=== PATIENT | female | born 2005 | race Two or more races ===

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

== ENCOUNTER → 2024-04-18 | Outpatient (CLI) | payer BC ==
[2024-04-18 08:26] LABS: Basophils # (auto) 0.1 10 ^3/uL (0-0.2); Basophils % (auto) 1.4 % (0.0-2.0); Eosinophils # (auto) 0.4 10 ^3/uL (0-0.8); Eosinophils % (auto) 9.3 % (0.0-7.0); Hematocrit 36.8 % (36.0-46.0); Hemoglobin 11.9 g/dL (12.2-16.2); Lymphocytes % (auto) 44.4 % (10.0-50.0); Mean Corpuscular Hemoglobin 27.6 pg (28.0-32.0); Mean Corpuscular Hgb Conc. 32.3 g/dL (32.0-36.0); Mean Corpuscular Volume 85.6 fL (80.0-100.0); Monocytes # (auto) 0.4 10 ^3/uL (0-1.3); Monocytes % (auto) 8.2 % (0.0-12.0); Neutrophils # (auto) 1.6 10 ^3/uL (1.6-8.6); Neutrophils % (auto) 36.7 % (37.0-80.0); Nucleated Red Blood Cells % 0.1 %; Red Cell Distribution Width 15.5 % (11.8-14.3); White Blood Cell 4.5 10^3/uL (4.4-10.8)
[2024-04-18 08:51] LABS: Urine Bacteria FEW /hpf (None Seen); Urine Blood TRACE /uL (Negative); Urine Clarity Clear (Clear); Urine Color Light-Yellow (Yellow); Urine Mucus FEW (None Seen); Urine Protein, UAD Negative (Negative); Urine Specific Gravity 1.021 (1.001-1.035); Urine Urobilinogen Normal (Negative); Urine WBC 4 /hpf (0 - 5); Urine pH 6.5 (5.0-9.0)
[2024-04-18 09:03] LABS: Alanine Aminotransferase 11 U/L (7-40); Albumin 4.5 g/dL (3.2-4.8); Alkaline Phosphatase 68 U/L (46-116); Anion Gap 3 (5-15); Aspartate Aminotransferase 10 U/L (13-40); BUN/Creatinine Ratio 14.1 (10.0-20.0); Bilirubin, Total 0.4 mg/dL (0.2-1.0); Blood Urea Nitrogen 9 mg/dL (9-23); Calcium 9.8 mg/dL (8.5-10.1); Carbon Dioxide 29 mmol/L (20-30); Chloride 106 mmol/L (98-107); Cholesterol 137 mg/dL (< 200); Glucose 84 mg/dL (74-106); HDL Cholesterol 46 mg/dL (40-59); LDL Cholesterol 82 mg/dL (< 100); Magnesium 1.9 mg/dL (1.6-2.6); Sodium 138 mmol/L (136-145); Triglycerides 72 mg/dL (< 150)
[2024-04-18 09:04] LABS: Total Protein 7.2 g/dL (5.7-8.2)
[2024-04-18 09:23] LABS: Uric Acid 3.6 mg/dL (3.1-7.8)
[2024-04-18 10:47] LABS: Folate (Folic Acid) 15.57 ng/mL (>5.38)
== END | disposition home or self-care (01) ==
LOC: LAB 08:11
PROVIDERS: ATTEND Internal Medicine
DX: E79.0 Hyperuricemia without signs of inflammatory arthritis and tophaceous disease (principal); R68.89 Other general symptoms and signs; E78.49 Other hyperlipidemia; D51.9 Vitamin B12 deficiency anemia, unspecified; R73.09 Other abnormal glucose; R94.6 Abnormal results of thyroid function studies; E55.9 Vitamin D deficiency, unspecified; E61.2 Magnesium deficiency
CPT/HCPCS: 36415; 80053; 80061; 81001; 82306; 82607; 82746; 83036; 83735; 84443; 84550; 85025; 87086

== ENCOUNTER 2025-04-09 01:59 | Emergency (ER) | payer BC ==
[~2025-04-09] VITALS: Ht 160 cm; Wt 50.9 kg
--- NOTE | 2025-04-09 02:34 | ED.PDOC ---
GI ASSESSMENT HPI Comments PT PRESENTED TO ED FOR SHARP, CONSTANT, GENERALIZED ABDOMINAL PAIN AND NAUSEA X2 HOURS RADIATING TO LEFT FLANK AREA. PT DENIED DYURIA. PT STATED POSSIBLE IBS DIAGNOSIS. Time Seen by MD: 02:04 Reviewed Notes: Nurses Notes, Medications, Allergies Allergies: Coded Allergies: No Known Drug Allergy (Verified Allergy, Unknown, 04/09/25) Home Meds Active Scripts Ibuprofen Micronized (MOTRIN TABLET) 600 Mg Tb, 600 MG PO TID PRN for 3 Days, #9 TAB *Black box warning-NSAIDS can increase risk of HI & hypertension, GI irritation, ulceration, bleed, perferation. Do not use post cardiac surgery. Use short duration/lowest effective dose. Prov:MORAIMA SAUNDERS MD 04/09/25 Information Source: Patient Past Medical History PAST MEDICAL HISTORY: Denies Surgical History: Denies all surgeries HEALTH SPA MANAGER History: No Pertinent HEALTH SPA MANAGER History Family History Family History: Reviewed,noncontributory to illness Social History Smoker: Non-Smoker Alcohol: Denies ETOH Use Drugs: Denies Drug Use Constitutional: denies: chills, diaphoresis, fatigue, fever, malaise, sweats, weakness, others EENTM: denies: blurred vision, double vision, ear bleeding, ear discharge, ear drainage, ear pain, ear ringing, eye pain, eye redness, hearing loss, mouth pain, mouth swelling, nasal discharge, nose bleeding, nose congestion, nose pain, photophobia, tearing, throat pain, throat swelling, voice changes, others Respiratory: denies: cough, hemoptysis, orthopnea, SOB at rest, shortness of breath, SOB with excertion, stridor, wheezing, others Cardiovascular: denies: chest pain, dizzy spells, diaphoresis, Dyspnea on exertion, edema, irregular heart beat, left arm pain, lightheadedness, palpitations, PND, syncope, others Gastrointestinal: reports: nausea, vomiting; denies: abdomen distended, abdominal pain, blood streaked bowels, constipated, diarrhea, dysphagia, difficulty swallowing, hematemesis, melena, poor appetite, poor fluid intake, rectal bleeding, rectal pain, others Genitourinary: reports: flank pain; denies: abnormal vagina bleeding, burning, dyspareunia, dysuria, frequency, hematuria, incontinence, pain, , vagina discharge, urgency, others Neurological: denies: dizziness, fainting, headache, left sided numbness, left sided weakness, numbness, paresthesia, pre-existing deficit, right sided numbness, right sided weakness, seizure, speech problems, tingling, tremors, weakness, others Musculoskeletal: reports: back pain; denies: gout, joint pain, joint swelling, muscle pain, muscle stiffness, neck pain, others Integumetry: denies: bruises, change in color, change in hair/nails, dryness, laceration, lesions, lumps, rash, wounds, others Allergic/Immunocompromised: denies: Difficulty Healing, Frequent Infections, Hives, Itching, others Hematologic/Lymphatic: denies: anemia, blood clots, easy bleeding, easy bruising, swollen glands, others Endocrine: denies: excessive hunger, excessive sweating, excessive thirst, excessive urination, flushing, intolerance to cold, intolerance to heat, unexplained weight gain, unexplained weight loss, others Psychiatric: denies: anxiety, bipolar disorder, depression, hopeless, panic disorder, schizophrenia, sleepless, suicidal, others Physical Exam General Appearance: Moderate Distress, Normal HEENT: Pharynx Normal Neck: Full Range of Motion, Non-Tender Respiratory: Lungs Clear, No Respiratory Distress, Normal Breath Sounds Cardiovascular: No Edema, No JVD, No Murmur, No Gallop, Normal Peripheral Pulses, Regular Rate/Rhythm Breast Exam: Deferred Gastrointestinal: No Organomegaly, Non Tender, No Pulsatile Mass, Normal Bowel Sounds, Soft Genitalia: Deferred Pelvic: Deferred Rectal: Deferred Extremities: Normal capillary refill, Normal inspection, Normal range of motion, Non-tender, No pedal edema Musculoskeletal : Extremity Location: Back (TENDERNESS PALPATED OVER LEFT MID BACK AND LEFT FLANK) Apperance: Normal Neurologic: Alert, rooming house keeper II-XII nml as Tested, No Motor Deficits, Normal Affect, Normal Mood, No Sensory Deficits Cerebellar Function: Normal Reflexes: Normal Skin: Dry, Normal Color, Warm Peripheral Pulses: 3+ Radial (R), 3+ Radial (L) Lymphatic: No Adenopathy Was a procedure done? Was a procedure done?: No GI differential Dx Differential Diagnosis: Constipation, Diverticular disease, Esophagitis, Gastritis/PUD, Gastroenteritis X-Ray, Labs, Meds, VS Vital Signs Date Time Temp Pulse Resp B/P (MAP) Pulse Ox O2 Delivery O2 Flow Rate FiO2 04/09/25 06:00 67 18 96/48 (64) 96 04/09/25 04:26 74 15 97/55 04/09/25 04:00 98.3 76 15 100/60 (73) 100 98.3 04/09/25 03:56 65 16 96/65 04/09/25 03:04 95 22 95/65 (75) 100 04/09/25 03:01 100 Room Air* 0 21 04/09/25 02:51 98.4 78 16 100/62 (75) 98 98.4 Lab Test 04/09/25 02:44 Range/Units White Blood Count 6.4 4.4-10.8 10^3/uL Red Blood Count 4.04 4.0-5.20 10^6/uL Hemoglobin 12.1 L 12.2-16.2 g/dL Hematocrit 36.2 36.0-46.0 % Mean Corpuscular Volume 89.6 80.0-100.0 fL Mean Corpuscular Hemoglobin 29.9 28.0-32.0 pg Mean Corpuscular Hemoglobin Concent 33.3 32.0-36.0 g/dL Red Cell Distribution Width 14.1 11.8-14.3 % Platelet Count 298 140-450 10^3/uL Mean Platelet Volume 8.6 6.9-10.8 fL Neutrophils (%) (Auto) 39.2 37.0-80.0 % Lymphocytes (%) (Auto) 47.3 10.0-50.0 % Monocytes (%) (Auto) 7.9 0.0-12.0 % Eosinophils (%) (Auto) 4.6 0.0-7.0 % Basophils (%) (Auto) 1.0 0.0-2.0 % Neutrophils # (Auto) 2.5 1.6-8.6 10 ^3/uL Lymphocytes # (Auto) 3.0 0.4-5.4 10 ^3/uL Monocytes # (Auto) 0.5 0-1.3 10 ^3/uL Eosinophils # (Auto) 0.3 0-0.8 10 ^3/uL Basophils # (Auto) 0.1 0-0.2 10 ^3/uL Nucleated Red Blood Cells 0.0 % Sodium Level 141 136-145 mmol/L Potassium Level 3.4 L 3.5-5.1 mmol/L Chloride Level 105 98-107 mmol/L Carbon Dioxide Level 23 20-31 mmol/L Anion Gap 13 5-15 Blood Urea Nitrogen 14 9-23 mg/dL Creatinine 0.90 0.550-1.02 mg/dL Glomerular Filtration Rate Calc 94 >90 mL/min BUN/Creatinine Ratio 15.6 10.0-20.0 Serum Glucose 114 H 74-106 mg/dL Calcium Level 9.2 8.7-10.4 mg/dL Total Bilirubin 0.3 0.2-1.0 mg/dL Aspartate Amino Transferase (AST) 17 13-40 U/L Alanine Aminotransferase (ALT) 15 7-40 U/L Alkaline Phosphatase 54 46-116 U/L Total Protein 6.8 5.7-8.2 g/dL Albumin 4.4 3.2-4.8 g/dL Beta HCG, Quantitative 0.5 L 1.5-4.2 mIU/mL Current Medications Medications (Trade) Dose Ordered Sig/Isamar Route Start Time Stop Time Status Last Admin Ketorolac Tromethamine (Toradol Injection) 30 mg ONCE ONCE IV 04/09/25 02:45 04/09/25 02:46 DC 04/09/25 02:56 Sodium Chloride 1,000 ml @ 1,000 mls/hr Q1H ONCE IV 04/09/25 02:45 04/09/25 03:44 DC 04/09/25 02:57 Ondansetron HCl (Zofran) 4 mg ONCE ONCE IV 04/09/25 03:00 04/09/25 03:01 DC 04/09/25 03:08 Metoclopramide HCl (Reglan Injection) 5 mg ONCE ONCE IV 04/09/25 03:45 04/09/25 03:46 DC 04/09/25 03:54 Morphine Sulfate 0.5 mg ONCE ONCE IM 04/09/25 03:45 04/09/25 03:46 DC 04/09/25 03:56 Sodium Chloride 1,000 ml @ 100 mls/hr Q10H ONCE IV 04/09/25 03:45 04/09/25 13:44 04/09/25 03:56 Patient alert. Came in for flank pain. Vitals stable. Answering questions. Continues to have pain. Was given Toradol. Establish intravenous access. Was given fluids pain Was given morphine. Was given Reglan. CT scan of the abdomen does show kidney stone. Continue monitoring. She is pain-free. Explained to the patient that she can be discharged home with pain medication. Satisfied with the treatment plan. Was told to follow up with her primary care physician. Was told to come back if there is any problem. Time of 1ST Reevaluation: 02:32 Reevaluation 1ST: Unchanged Time of 2ND Reevaluation: 03:14 Reevaluation 2ND: Improved Patient Education/Counseling: Diagnosis, Treatment, Prognosis, Need For Follow Up Family Education/Counseling: Diagnosis, Treatment, Prognosis, Need For Follow Up Departure 1 Departure Time of Disposition: 07:02 Impression: Primary Impression: Kidney stone Disposition: 01 HOME / SELF CARE / HOMELESS Condition: Good e-Prescriptions Cephalexin (KEFLEX CAPSULE) 250 Mg Cp 250 MG PO QID for 5 Days, #20 BOTTLE Prov: MORAIMA SAUNDERS MD 04/09/25 Ibuprofen Micronized (MOTRIN TABLET) 600 Mg Tb 600 MG PO TID PRN for 3 Days, #9 TAB *Black box warning-NSAIDS can increase risk of HI & hypertension, GI irritation, ulceration, bleed, perferation. Do not use post cardiac surgery. Use short duration/lowest effective dose. Prov: MORAIMA SAUNDERS MD 04/09/25 Discharged With: Self Critical Care Note Critical Care Time?: No Stability Stability form required: No Heart Score Heart Score: Heart Score Response (Comments) Value History N/A 0 EKG N/A 0 Age N/A 0 Risk Factors N/A 0 Troponin N/A 0 Total 0 EMILY IRWIN April 09, 2025 02:34 MORAIMA SAUNDERS MD April 09, 2025 07:03
[2025-04-09] MEDS: KETOROLAC TROMETH 30 MG/ML 1ML VIAL IV ONE (02:56)
[2025-04-09] MEDS: SODIUM CHLORIDE 0.9% 1,000 ML IV ONE ×3 (02:57→07:23)
[2025-04-09 02:58] LABS: Basophils # (auto) 0.1 10 ^3/uL (0-0.2); Eosinophils # (auto) 0.3 10 ^3/uL (0-0.8); Eosinophils % (auto) 4.6 % (0.0-7.0); Hematocrit 36.2 % (36.0-46.0); Hemoglobin 12.1 g/dL (12.2-16.2); Lymphocytes % (auto) 47.3 % (10.0-50.0); Mean Corpuscular Hemoglobin 29.9 pg (28.0-32.0); Mean Corpuscular Hgb Conc. 33.3 g/dL (32.0-36.0); Mean Corpuscular Volume 89.6 fL (80.0-100.0); Monocytes # (auto) 0.5 10 ^3/uL (0-1.3); Monocytes % (auto) 7.9 % (0.0-12.0); Neutrophils # (auto) 2.5 10 ^3/uL (1.6-8.6); Neutrophils % (auto) 39.2 % (37.0-80.0); Platelet Count (auto) 298 10^3/uL (140-450); Red Blood Cells 4.04 10^6/uL (4.0-5.20); Red Cell Distribution Width 14.1 % (11.8-14.3); White Blood Cell 6.4 10^3/uL (4.4-10.8)
[2025-04-09 03:01] VITALS: O2SAT 100
[2025-04-09] MEDS: ONDANSETRON HCL 4 MG/2 ML VIAL IV ONE (03:08)
[2025-04-09] MEDS: ONDANSETRON HCL 4 MG/2 ML VIAL ONE (03:08)
[2025-04-09 03:42] LABS: Alanine Aminotransferase 15 U/L (7-40); Albumin 4.4 g/dL (3.2-4.8); Alkaline Phosphatase 54 U/L (46-116); Aspartate Aminotransferase 17 U/L (13-40); BUN/Creatinine Ratio 15.6 (10.0-20.0); Bilirubin, Total 0.3 mg/dL (0.2-1.0); Blood Urea Nitrogen 14 mg/dL (9-23); Calcium 9.2 mg/dL (8.7-10.4); Carbon Dioxide 23 mmol/L (20-31); Total Protein 6.8 g/dL (5.7-8.2)
[2025-04-09] MEDS: METOCLOPRAMIDE HCL 5MG/ml INJ 2ml VIAL IV ONE (03:54)
[2025-04-09] MEDS: MORPHINE SULFATE INJ 2 MG/ml SYRG IM ONE (03:56)
[2025-04-09 04:13] LABS: Glucose 114 mg/dL (74-106)
[2025-04-09 04:21] LABS: Anion Gap 13 (5-15); Chloride 105 mmol/L (98-107); Sodium 141 mmol/L (136-145)
[2025-04-09 04:22] LABS: Potassium 3.4 mmol/L (3.5-5.1)
--- NOTE | 2025-04-09 06:49 | DVH ---
Exam: CT CT AB PEL WO CON-NO ORAL OR IV History: left flank pain Comparison Study: None Technique: Multidetector spiral CT of the abdomen was performed from lung bases to pubic symphysis. I maging was performed without IV contrast. Axial, coronal and sagittal multiplanar reformats were obta ined from the axial data set by the technologist. Radiation Dose : 1. Abdomen/Pelvis: CTDIvol 5.4 mGy, DLP 309 mGy*cm. Findings: Evaluation of solid organs is limited due to lack of intravenous contrast use. Lung Bases: No acute or significant lung base finding. Normal heart size. No pleural or pericardial effusion. Liver: The liver is normal in size. No focal lesions. Gallbladder and Biliary Tree: Unremarkable Spleen: Unremarkable Pancreas: The pancreas is grossly normal in appearance. Adrenal Glands: Unremarkable Kidneys: Right kidney is unremarkable. Punctate 0.1 cm nonobstructing stone in the left upper pole. Mild left hydroureteronephrosis. No appreciable obstructing stone or mass. Bladder: Grossly unremarkable for degree of distention. Bowel: The stomach is grossly normal in appearance. Moderate colonic stool. The appendix is not visua lized; however, no secondary findings of acute appendicitis identified. Ascites: Absent Lymphadenopathy: No mesenteric, retroperitoneal or periportal lymphadenopathy. Abdominal Wall and Mesentery: Unremarkable. Vasculature: The visualized abdominal aorta is normal in size and caliber. Evaluation of abdominal a nd pelvic vessels is limited due to lack of intravenous contrast. Pelvic Organs: Unremarkable Musculoskeletal: No aggressive focal bony lesions, acute fractures or dislocation. IMPRESSION: Punctate 0.1 cm nonobstructing stone in the left upper pole kidney. Mild left hydroureteronephrosis without appreciable obstructing stone or mass. Findings may represent changes related to recently passed renal stone. Clinical correlation advised. Moderate volume colonic stool.
[2025-04-09] MEDS ORDERED: IBU600T PO (07:04)
[2025-04-09] MEDS ORDERED: CEPH250C PO (07:19)
[2025-04-09] MEDS: POTASSIUM EFFERVESENT TAB 25 MEQ PO ONE (07:23)
[2025-04-09 07:30] VITALS: BP 96/56; PULSE 69; RESP 22; TEMP 97.9; O2SAT 97
[2025-04-09 08:36] LABS: Urine Bacteria FEW /hpf (None Seen); Urine Blood 2+ /uL (Negative); Urine Clarity Turbid (Clear); Urine Color Colorless (Yellow); Urine Mucus FEW (None Seen); Urine Protein, UAD Negative (Negative); Urine Specific Gravity 1.023 (1.001-1.035); Urine Squamous Epithelial Cell FEW /hpf (<5); Urine Urobilinogen Normal (Negative); Urine WBC 2 /HPF (0-5)
[2025-04-10] MEDS ORDERED: DOCU-265 PO ×2 (15:48)
[2025-04-10] MEDS ORDERED: CIPR500T4 PO ×2 (15:48)
[2025-04-10] MEDS ORDERED: ACET-1882 PO ×2 (15:48)
== END 2025-04-09 08:24 | disposition home or self-care (01) ==
LOC: ER 01:59
DX: N20.0 Calculus of kidney (principal); Z79.899 Other long term (current) drug therapy
CPT/HCPCS: 36415; 74176; 80053; 81001; 81025; 84702; 85025; 96361; 96372; 96374; 96375; 99285; J1885; J2270; J2405; J2765; J7030

== ENCOUNTER 2025-04-09 12:50 | Inpatient (IN) | payer BC ==
[~2025-04-09] VITALS: Ht 160 cm; Wt 56.1 kg
[~2025-04-09 12:50] MED LIST: CEPH250C PO; IBU600T PO
--- NOTE | 2025-04-09 13:22 | ED.PDOC ---
General HPI Comments 19 y.o female presents to the ED for a chief complaint of mid abdominal pain radiating to her left sided flank, associated with nausea, vomiting and chills that started 0100. Patient describes pain as sharp, presents at an 8/10 on the pain scale but does increase to a 10/10 for about 5-10 minutes spontaneously. Patient was seen here at 0200 this morning, had a CT scan which confirmed kidney stones and discharged her home with a prescription of 600mg of Ibuprofen. Patient took pain medication but reports pain is persistent and non alleviating. She denies any fever, diarrhea, recent injuries, dysuria or hematuria. Patient has no medical history or allergies. Denies substance, alcohol or tobacco use. Time Seen by MD: 13:13 Reviewed notes: Nurses Notes, Medications, Allergies Allergies: Coded Allergies: No Known Drug Allergy (Verified Allergy, Unknown, 04/09/25) Home Meds Active Scripts Cephalexin (KEFLEX CAPSULE) 250 Mg Cp, 250 MG PO QID for 5 Days, #20 BOTTLE Prov:MORAIMA SAUNDERS MD 04/09/25 Ibuprofen Micronized (MOTRIN TABLET) 600 Mg Tb, 600 MG PO TID PRN for 3 Days, #9 TAB *Black box warning-NSAIDS can increase risk of [place] & hypertension, GI irritation, ulceration, bleed, perferation. Do not use post cardiac surgery. Use short duration/lowest effective dose. Prov:MORAIMA SAUNDERS MD 04/09/25 Information Source: Patient Mode of Arrival: Ambulatory Severity: Moderate Timing: Hours Duration: Since onset Onset: Spontaneous Symptoms: None History of: Kidney stone Location: Abdomen, (L)Flank Modifying factors: None associated signs and symptoms: Abdominal Pain, Flank Pain, Back Pain Past Medical History PAST MEDICAL HISTORY: Denies Surgical History: Denies all surgeries MANAGEMENT RECRUITER History: No Pertinent MANAGEMENT RECRUITER History Family History Family History: Family hx of HTN Social History Smoker: Non-Smoker Alcohol: Denies ETOH Use Drugs: Denies Drug Use Lives In: Home Constitutional: denies: chills, diaphoresis, fatigue, fever, malaise, sweats, weakness, others EENTM: denies: blurred vision, double vision, ear bleeding, ear discharge, ear drainage, ear pain, ear ringing, eye pain, eye redness, hearing loss, mouth pain, mouth swelling, nasal discharge, nose bleeding, nose congestion, nose pain, photophobia, tearing, throat pain, throat swelling, voice changes, others Respiratory: denies: cough, hemoptysis, orthopnea, SOB at rest, shortness of breath, SOB with excertion, stridor, wheezing, others Cardiovascular: denies: chest pain, dizzy spells, diaphoresis, Dyspnea on ex ertion, edema, irregular heart beat, left arm pain, lightheadedness, palpitations, PND, syncope, others Gastrointestinal: reports: abdominal pain; denies: abdomen distended, blood streaked bowels, constipated, diarrhea, dysphagia, difficulty swallowing, hematemesis, melena, nausea, poor appetite, poor fluid intake, rectal bleeding, rectal pain, vomiting, others Genitourinary: reports: flank pain; denies: abnormal vagina bleeding, burning, dyspareunia, dysuria, frequency, hematuria, incontinence, pain, , vagina discharge, urgency, others Neurological: denies: dizziness, fainting, headache, left sided numbness, left sided weakness, numbness, paresthesia, pre-existing deficit, right sided numbness, right sided weakness, seizure, speech problems, tingling, tremors, weakness, others Musculoskeletal: reports: back pain; denies: gout, joint pain, joint swelling, muscle pain, muscle stiffness, neck pain, others Integumetry: denies: bruises, change in color, change in hair/nails, dryness, laceration, lesions, lumps, rash, wounds, others Allergic/Immunocompromised: denies: Difficulty Healing, Frequent Infections, Hives, Itching, others Hematologic/Lymphatic: denies: anemia, blood clots, easy bleeding, easy bruising, swollen glands, others Endocrine: denies: excessive hunger, excessive sweating, excessive thirst, excessive urination, flushing, intolerance to cold, intolerance to heat, unexplained weight gain, unexplained weight loss, others Psychiatric: denies: anxiety, bipolar disorder, depression, hopeless, panic disorder, schizophrenia, sleepless, suicidal, others All Other Systems: Reviewed and Negative Physical Exam General Appearance: Moderate Distress HEENT: Normal ENT Inspection, Pharynx Normal, TMs Normal Neck: Full Range of Motion, Non-Tender, Normal, Normal Inspection Respiratory: Chest Non-Tender, Lungs Clear, No Accessory Muscle Use, No Respiratory Distress, Normal Breath Sounds Cardiovascular: No Edema, No JVD, No Murmur, No Gallop, Normal Peripheral Pulses, Regular Rate/Rhythm Breast Exam: Deferred Gastrointestinal: No Organomegaly, Non Tender, No Pulsatile Mass, Normal Bowel Sounds, Soft Genitalia: Deferred Pelvic: Deferred Rectal: Deferred Extremities: No calf tenderness, Normal capillary refill, Normal inspection, Normal range of motion, Non-tender, No pedal edema Musculoskeletal : Location: Left Extremity Location: Back Apperance: Limited ROM, Tenderness: Moderate Neurologic: Alert, county demonstrator II-XII nml as Tested, No Motor Deficits, Normal Affect, Normal Mood, No Sensory Deficits Cerebellar Function: Normal Reflexes: Normal Skin: Dry, Normal Color, Warm Lymphatic: No Adenopathy Was a procedure done? Was a procedure done?: No Differential Diagnosis Kidney stone (Female): Musculoskeletal pain, Pancreatitis, Pyelonephritis, Strain, Urinary obstruction X-Ray, Labs, Meds, VS Vital Signs Date Time Temp Pulse Resp B/P (MAP) Pulse Ox O2 Delivery O2 Flow Rate FiO2 04/09/25 15:35 61 17 100 Room Air 04/09/25 15:35 98.7 63 17 108/70 (83) 100 98.7 04/09/25 13:23 98.3 78 17 96/60 (72) 98 98.3 04/09/25 12:50 98.3 78 17 96/60 (72) 98 98.3 Current Medications Medications (Trade) Dose Ordered Sig/Isamar Route Start Time Stop Time Status Last Admin Ondansetron HCl (Zofran) 4 mg ONCE ONCE IV 04/09/25 13:30 04/09/25 13:31 DC 04/09/25 15:43 Sodium Chloride 1,000 ml @ 1,000 mls/hr Q1H ONCE IVB 04/09/25 13:30 04/09/25 14:29 DC 04/09/25 15:31 Ketorolac Tromethamine (Toradol Injection) 30 mg ONCE ONCE IV 04/09/25 13:30 04/09/25 13:31 DC 04/09/25 15:43 Exam: CT CT AB PEL WO CON-NO ORAL OR IV IMPRESSION: Punctate 0.1 cm nonobstructing stone in the left upper pole kidney. Mild left hydroureteronephrosis without appreciable obstructing stone or mass. Findings may represent changes related to recently passed renal stone. Clinical correlation advised. Moderate volume colonic stool. IV Hep-Lock was established The patient was given ketorolac 30 mg IV push The patient was given a 1 L bolus of normal saline The patient was given Zofran 4 mg IV push for the nausea At this time, the patient is being admitted to the hospitalist The patient understands and agrees with the management. Images Reviewed?: Images reviewed and evaluated by me Time of 1ST Reevaluation: 13:18 Reevaluation 1ST: Unchanged Patient Education/Counseling: Diagnosis, Treatment, Prognosis Family Education/Counseling: Diagnosis, Treatment, Prognosis Departure 1 Departure Time of Disposition: 17:25 Impression: Primary Impression: Hydronephrosis Qualified Codes: N13.2 - Hydronephrosis with renal and ureteral calculous obstruction Additional Impression: Kidney stone Disposition: ADMITTED INPATIENT Admit to: Med Surg Condition: Fair Critical Care Note Critical Care Time?: No Stability Stability form required: Yes Unstable for transfer: ED Physician Assesment (Clinical assesment) Heart Score Heart Score: Heart Score Response (Comments) Value History N/A 0 EKG N/A 0 Age N/A 0 Risk Factors N/A 0 Troponin N/A 0 Total 0 I personally scribed for WHITNEY WEBER MD ([email or web address]) on 04/09/25 at 13:22. Electronically submitted by Aliyah Walters ([facility]). WHITNEY WEBER MD April 09, 2025 13:22
[2025-04-09] MEDS: SODIUM CHLORIDE 0.9% 1,000 ML IVB ONE (15:31)
[2025-04-09] MEDS: ONDANSETRON HCL 4 MG/2 ML VIAL IV ONE (15:43)
[2025-04-09] MEDS: KETOROLAC TROMETH 30 MG/ML 1ML VIAL IV ONE (15:43)
[2025-04-09] MEDS ORDERED: ACETAMINOPHEN 325 MG TAB PO PRN (23:00)
[2025-04-09] MEDS ORDERED: DOCUSATE SOD 100 MG CAP PO PRN (23:00)
[2025-04-09] MEDS ORDERED: ONDANSETRON HCL 4 MG/2 ML VIAL IV PRN (23:00)
[2025-04-09] MEDS ORDERED: HYDROcodone-ACET 5/325MG TAB PO PRN (23:00)
--- NOTE | 2025-04-09 23:05 | DVHHP2 ---
History of Present Illness History of Present Illness Patient is 19 years old female with no significant past medical history came with a complaint of abdominal pain. As per patient she has been having abdominal pain that started on 1:00 a.m. in the morning, sudden onset, sharp, radiating to the back to the left flank, initially it was intermittent then it became persistent, maximum pain severity was 8/10. As per patient she came around 2:00 a.m. in the morning with the pain in the abdomen before she had a CT scan she had uterine strain and soy stone passing. After CT scan she was discharged home with the pain medication. But as the pain was ongoing she came back for further evaluation and care. Patient also endorsed nausea and vomiting several times, watery, no blood. Patient also reported having constipation for a while. No fever or dysuria or chest pain no shortness a breath or leg swelling or joint redness or tenderness. CT scan of the abdomen -Punctate 0.1 cm nonobstructing stone in the left upper pole kidney. Mild left hydroureteronephrosis without appreciable obstructing stone or mass. Findings may represent changes related to recently passed renal stone. Clinical correlation advised.Moderate volume colonic stool. Past Medical History None Family History Family history of hypertension Past Social History Lives with mom, denies smoking/drug abuse, occasional alcoholic beverage seldom Review of Systems Review of Systems Allergy-NKDA Patient was seen today at the bedside. Patient Cardiovascular- deny acute chest pain or shortness of breath or cough or palpitation Respiratory denies cough or short of breath or wheezing Gastrointestinal- denies any rectal bleeding, Musculoskeletal-denies acute joint swelling or tenderness or redness Neurological- denies acute dysarthria, dysphagia, change in vision Psychiatry- denies depression or SI or HI Skin- denies acute rash or purpura Allergies: Coded Allergies: No Known Drug Allergy (Verified Allergy, Unknown, 04/09/25) Medications Current Medications Medications Dose Ordered Sig/Isamar Route Start Time Stop Time Status Last Admin Dose Admin Sodium Chloride 10 ml Q8HR IV 04/10/25 06:00 Sodium Chloride 1,000 ml @ 120 mls/hr Q8H20M IV 04/09/25 23:00 Ondansetron HCl 4 mg Q4HP PRN IV 04/09/25 23:00 Docusate Sodium 100 mg BIDPRN PRN PO 04/09/25 23:00 Acetaminophen 650 mg Q6HP PRN PO 04/09/25 23:00 Ketorolac Tromethamine 15 mg Q6HPRN PRN IV 04/09/25 23:00 04/14/25 22:59 Pantoprazole Sodium 40 mg DAILY IV 04/10/25 10:00 UNV Ceftriaxone Sodium 50 ml @ 100 mls/hr DAILY@09 IV 04/10/25 09:00 UNV Exam Vital Signs Vital Signs Date Time Temp Pulse Resp B/P (MAP) Pulse Ox O2 Delivery O2 Flow Rate FiO2 04/09/25 22:03 98.7 68 14 97/67 (77) 100 98.7 04/09/25 15:35 Room Air Exam General examination- awake, alert, conversant HEENT- PEERLA, no acute nasal discharge Cardiovascular- S1-S2 audible, rate and rhythm regular, no murmur Respiratory- CTAB, no wheeze or rhonchi Gastrointestinal-nontender, bowel sound+. Nondistended Renal system-left renal angle tenderness++ Musculoskeletal-no acute joint swelling or tenderness or redness Lower extremity- no leg edema Neurological- cranial nerves intact, no acute dysarthria or dysphagia Psychiatry- denies depression or SI or HI Skin- no acute rash or purpura Assessment/Plan Assessment/Plan Assessment and plan Intractable abdomen and left flank pain likely due to acute renal stone Mild left-sided hydronephrosis likely due to acute renal stone with the obstruction Suspected acute pyelonephritis Intractable nausea and vomiting likely due to pyelonephritis Constipation CT scan of the abdomen -Punctate 0.1 cm nonobstructing stone in the left upper pole kidney. Mild left hydroureteronephrosis without appreciable obstructing stone or mass. Findings may represent changes related to recently passed renal stone. Clinical correlation advised.Moderate volume colonic stool. Plan Ordered mannitol iv Continue IV fluid as prescribed Continue pain medication as prescribed Ordered ceftriaxone IV 1 g IV daily Ordered UA, urine CS Ordered lactulose Ordered lipase, CBC, CMP Ordered ultrasound of the renal system to rule out hydronephrosis Goals of care, Code status ; discussed with >15 minutes PUD prophylaxis: Pantoprazole DVT prophylaxis: Patient ambulating Plan discussed with Dr. Celeste , nursing staff, Total time spent on patient evaluation, chart review, assessment and plan, discussion discussion >35 minutes Plan discussed with: Patient, Other (Mother, RN) My Orders Orders - AKBAR DENNIS RESIDENT Procedure Category Date Status Time Admit ADMIT 04/09/25 Transmitted 22:51 Code Status CODE 04/09/25 Transmitted 22:51 Sodium Chloride Lock PHA 04/10/25 In Process (Saline Lock Ns) 06:00 Sodium Chloride 0.9% PHA 04/09/25 In Process 23:00 Ondansetron Hcl PHA 04/09/25 In Process (Zofran) 23:00 Docusate Sodium PHA 04/09/25 In Process Capsule (Colace 23:00 Acetaminophen Tablet PHA 04/09/25 In Process (Tylenol Tablet) 23:00 Notify Md Of Changes REMY 04/09/25 In Process From Base 22:51 Ketorolac Injection PHA 04/09/25 Logged (Toradol Injection) 23:00 Pantoprazole PHA 04/09/25 Logged (Protonix) 23:00 Pantoprazole PHA 04/10/25 Logged (Protonix) 10:00 Ceftriaxone 1gm/50ml PHA 04/10/25 Logged D5w (Rocephin) 09:00 Ceftriaxone 1gm/50ml PHA 04/09/25 Logged D5w (Rocephin) 23:00 Urine Bacterial FILIBERTO 04/09/25 Logged Culture 22:54 Strain All Urine For REMY 04/09/25 In Process Stones 22:55 Complete Blood Count LAB 04/09/25 Transmitted 22:56 Comprehensive LAB 04/09/25 Transmitted Metabolic Panel 22:56 Thyroid Stimulating LAB 04/09/25 Transmitted Hormone 22:56 Date of Service: April 09, 2025 Billing Provider: NOAH CELESTE MD Common Visit Codes: 02804-[id number] INP/OBS CARE (HIGH) Secondary Visit Codes: [id number] CARE PLAN 30 MINUTES AKBAR DENNIS RESIDENT April 09, 2025 23:05
[2025-04-09 23:19] LABS: Basophils # (auto) 0.1 10 ^3/uL (0-0.2); Basophils % (auto) 0.9 % (0.0-2.0); Eosinophils # (auto) 0 10 ^3/uL (0-0.8); Eosinophils % (auto) 0.7 % (0.0-7.0); Hemoglobin 11.2 g/dL (12.2-16.2); Lymphocytes # (auto) 1.9 10 ^3/uL (0.4-5.4); Lymphocytes % (auto) 29.2 % (10.0-50.0); Mean Corpuscular Hemoglobin 29.9 pg (28.0-32.0); Mean Corpuscular Volume 90.4 fL (80.0-100.0); Monocytes # (auto) 0.5 10 ^3/uL (0-1.3); Monocytes % (auto) 7.3 % (0.0-12.0); Neutrophils % (auto) 61.9 % (37.0-80.0); Platelet Count (auto) 247 10^3/uL (140-450); Red Blood Cells 3.76 10^6/uL (4.0-5.20); Red Cell Distribution Width 14.5 % (11.8-14.3); White Blood Cell 6.5 10^3/uL (4.4-10.8)
[2025-04-09 23:38] LABS: Alanine Aminotransferase 15 U/L (7-40); Albumin 4.2 g/dL (3.2-4.8); Anion Gap 10 (5-15); Aspartate Aminotransferase 15 U/L (13-40); BUN/Creatinine Ratio 14.8 (10.0-20.0); Bilirubin, Total 0.5 mg/dL (0.2-1.0); Calcium 8.9 mg/dL (8.7-10.4); Carbon Dioxide 22 mmol/L (20-31); Glucose 79 mg/dL (74-106); Potassium 3.7 mmol/L (3.5-5.1); Sodium 142 mmol/L (136-145); Total Protein 6.4 g/dL (5.7-8.2)
[2025-04-09 23:46] LABS: Alkaline Phosphatase 44 U/L (46-116); Blood Urea Nitrogen 8 mg/dL (9-23); Chloride 110 mmol/L (98-107)
[2025-04-10] VITALS (8 sets, daily range): BP systolic 94–112; BP diastolic 48–68; PULSE 57–93; RESP 17–18; TEMP 98–98.7; O2SAT 65–99
--- NOTE | 2025-04-10 00:49 | DVH ---
RENAL ULTRASOUND CLINICAL HISTORY: Flank pain, rule out hydronephrosis TECHNIQUE: Multiple grayscale ultrasound images were obtained through the kidneys and urinary bladder . COMPARISON: CT abdomen and pelvis from 04/09/2025 FINDINGS: Right kidney: Measures 10 cm. No hydronephrosis. Left kidney: Measures 9.5 cm. No hydronephrosis. Urinary bladder: Partially distended urinary bladder. Left ureteral jet not visualized. IMPRESSION: 1. Normal size kidneys without evidence of hydronephrosis. 2. Left ureteral jet not visualized.
[2025-04-10] MEDS: KETOROLAC TROMETH 30 MG/ML 1ML VIAL IV PRN (01:38)
[2025-04-10] MEDS: cefTRIAXone 1GM/50ML D5W 50 ML IV ONE (01:39)
[2025-04-10] MEDS: PANTOPRAZOLE 40 MG/10 ML VIAL INJ IV ONE (01:39)
[2025-04-10] MEDS: LACTULOSE 20Gm/30ML SOLN PO ONE (01:39)
[2025-04-10] MEDS: SODIUM CHLORIDE 0.9% 1,000 ML IV SCH (01:40)
[2025-04-10] MEDS: SODIUM CHLORIDE 0.9% 500 ML IV ONE (02:51)
[2025-04-10] MEDS: SODIUM CHLOR 0.9% PF (SALINE LOCK) 10ML VIAL/SYR IV SCH (05:39)
[2025-04-10] MEDS: MANNITOL 20% SOLN 100 gm/500ml 100 ML IV ONE (08:46)
[2025-04-10] MEDS: LACTULOSE 20Gm/30ML SOLN PO PRN (09:00)
[2025-04-10] MEDS: cefTRIAXone 1GM/50ML D5W 50 ML IV SCH (09:01)
[2025-04-10] MEDS: PANTOPRAZOLE 40 MG/10 ML VIAL INJ IV SCH (10:21)
[2025-04-10 10:40] LABS: Basophils # (auto) 0 10 ^3/uL (0-0.2); Basophils % (auto) 1.2 % (0.0-2.0); Eosinophils # (auto) 0.2 10 ^3/uL (0-0.8); Hemoglobin 10.2 g/dL (12.2-16.2); Lymphocytes # (auto) 1.7 10 ^3/uL (0.4-5.4); Lymphocytes % (auto) 42.6 % (10.0-50.0); Mean Corpuscular Hemoglobin 30.1 pg (28.0-32.0); Mean Corpuscular Hgb Conc. 32.9 g/dL (32.0-36.0); Mean Corpuscular Volume 91.5 fL (80.0-100.0); Monocytes # (auto) 0.3 10 ^3/uL (0-1.3); Monocytes % (auto) 8.2 % (0.0-12.0); Neutrophils # (auto) 1.7 10 ^3/uL (1.6-8.6); Platelet Count (auto) 200 10^3/uL (140-450); Red Blood Cells 3.39 10^6/uL (4.0-5.20); Red Cell Distribution Width 14.3 % (11.8-14.3)
--- NOTE | 2025-04-10 11:55 | DVHPNRES ---
Progress Note Date Seen: April 10, 2025 Resident Creating Document: ASIA VARGAS RESIDENT Has the PT tested + for MRSA If YES, has PT been informed?: No Medical Necessity Reason Pt with a Central, PICC or Fol: No Medical Necessity Reason History of Present Illness Patient is 19 years old female with no significant past medical history came with a complaint of abdominal pain. As per patient she has been having abdominal pain that started on 1:00 a.m. in the morning, sudden onset, sharp, radiating to the back to the left flank, initially it was intermittent then it became persistent, maximum pain severity was 8/10. As per patient she came around 2:00 a.m. in the morning with the pain in the abdomen before she had a CT scan she had uterine strain and soy stone passing. After CT scan she was discharged home with the pain medication. But as the pain was ongoing she came back for further evaluation and care. Patient also endorsed nausea and vomiting several times, watery, no blood. Patient also reported having constipation for a while. No fever or dysuria or chest pain no shortness a breath or leg swelling or joint redness or tenderness. CT scan of the abdomen -Punctate 0.1 cm nonobstructing stone in the left upper pole kidney. Mild left hydroureteronephrosis without appreciable obstructing stone or mass. Findings may represent changes related to recently passed renal stone. Clinical correlation advised.Moderate volume colonic stool. Past Medical History; None Past surgical history: None Family History: hypertension Past Social History: Lives with mom, denies smoking/drug abuse, occasional alcoholic beverage seldom 04/10 Patient is a 19-year-old female with no known past medical history was seen yesterday Thursday (04/09/2025) with left flank pain with radiation to the groin and lower abdomen. Per patient, while she was waiting to be seen she actually did pass a stone. CT abdomen ( 04/09/2025) showed Punctate 0.1 cm nonobstructing stone in the left upper pole kidney. Mild left hydroureteronephrosis without appreciable obstructing stone or mass. Findings may represent changes related to recently passed renal stone. Clinical correlation advised.Moderate volume colonic stool. Patient was later discharge yesterday, but she returned on 04/10/2025 around 2: 00 am due to persistent left flank pain. Lab works done on 04/09/2025 showed evidence possible UTI. will get urine for culture and start her on antibiotics. Subjective Review of Systems Constitutional: Denies fever no chills no feeling of malaise HEENT: Denies headache, ear pain, ear discharges, conjunctivitis, nasal discharge throat pain Cardiovascular: Denies chest pain, palpitation, orthopnea, PND, or pedal edema Respiratory: Denies shortness of breath, cough cough, sputum production, hemoptysis, GI: Denies abdominal pain, nausea, vomiting, diarrhea, hematemesis, hematochezia, : Denies frequency, urgency, hematuria, left flank pain, lower abodominal pain Endocrine: Denies unintentional weight gain or weight loss, feeling of hot flashes, Souleymane: Denies easy bruising, bleeding disorders, epistaxis Musculoskeletal: Denies joint pains, muscle aches Psych: No evidence of depression, debi, suicidal ideation Objective vital signs Vital Sign Date Time Temp Pulse Resp B/P (MAP) Pulse Ox O2 Delivery O2 Flow Rate FiO2 04/10/25 08:55 98.7 93 18 100/55 (70) 98 98.7 04/10/25 08:00 Room Air* 0 21 Total Intake and Output 04/09/25 04/09/25 04/10/25 15:00 23:00 07:00 Intake Total 1000 ml 0 ml Balance 1000 ml 0 ml medications Current Medications Medications Dose Ordered Sig/Isamar Route Start Time Stop Time Status Last Admin Dose Admin Sodium Chloride 10 ml Q8HR IV 04/10/25 06:00 04/10/25 05:39 10 ML Sodium Chloride 1,000 ml @ 120 mls/hr Q8H20M IV 04/09/25 23:00 04/10/25 01:40 120 MLS/HR Ondansetron HCl 4 mg Q4HP PRN IV 04/09/25 23:00 Docusate Sodium 100 mg BIDPRN PRN PO 04/09/25 23:00 Acetaminophen 650 mg Q6HP PRN PO 04/09/25 23:00 Ketorolac Tromethamine 15 mg Q6HPRN PRN IV 04/09/25 23:00 04/14/25 22:59 04/10/25 09:01 15 MG Pantoprazole Sodium 40 mg DAILY IV 04/10/25 10:00 04/10/25 10:21 40 MG Ceftriaxone Sodium 50 ml @ 100 mls/hr DAILY@09 IV 04/10/25 09:00 04/10/25 09:01 100 MLS/HR Lactulose 30 ml BIDPRN PRN PO 04/09/25 23:15 04/10/25 09:00 30 ML Examination General Appearance: Alert, Oriented X3, Cooperative, No acute distress HEENT: Atraumatic, PERRLA, EOMI, Mucous membrane moist/pink Respiratory: Clear to auscultation, Normal air movement Cardiovascular: Regular rate, Normal S1, Normal S2, No murmurs, no chest wall tenderness Abdominal: NO distention, moderate tenderness in the left Flank, bowel sounds present, no scars noted Extremities: No clubbing, No cyanosis, No edema, Normal pulses, No tenderness/swelling Skin: No rashes, No breakdown, No significant lesion Neuro: Normal gait, Normal speech, Strength at 5/5 X4 ext, Normal tone, Sensation intact, Cranial nerves 3-12 NL, Reflexes 2+ Psych/Mental Status: Mental status NL, Mood NL laboratory and microbiology Laboratory Tests 04/10/25 10:20 04/09/25 23:06 Test 04/09/25 23:06 Range/Units Serum Glucose 79 74-106 mg/dL Problem List/Assessment/Plan Problem List/Assessment/Plan Assessment and plan Possible acute pyelonephritiis Mild left-sided hydronephrosis resolved Neprolithiasis; CT: Punctate 0.1 cm nonobstructing stone in the left upper pole kidney Intractable abdomen and left flank pain likely due to acute renal stone Intractable nausea and vomiting likely due to pyelonephritis Constipation Normocytic normochromic Anemia Mild leukopenia Plan IV Ceftriaxone daily Continue IV mannitol Continue IV fluid as prescribed Pening UA and Culture lactulose Goal of care discussed for more than 20 minute: Full code Case and plan discussed with Dr. Rowe Plan discussed with: Patient, Other (Nurse) ASIA VARGAS RESIDENT April 10, 2025 11:55
[2025-04-10 12:42] LABS: Urine Bacteria None Seen /hpf (None Seen)
[2025-04-10 13:10] LABS: Urine Blood TRACE /uL (Negative); Urine Clarity Clear (Clear); Urine Color Light-Yellow (Yellow); Urine Mucus FEW (None Seen); Urine Protein, UAD Negative (Negative); Urine Specific Gravity 1.029 (1.001-1.035); Urine Squamous Epithelial Cell FEW /hpf (<5); Urine Urobilinogen Normal (Negative); Urine WBC 2 /HPF (0-5)
[2025-04-10 13:23] LABS: Amphetamine Screen, Urine Neg (NEGATIVE); Barbiturate Scree,Urine Neg (NEGATIVE); Benzodiazephine Screen, Urine Neg (NEGATIVE)
[2025-04-10 13:24] LABS: Cocaine Screen, Urine Neg (NEGATIVE)
[2025-04-10 13:25] LABS: Cannabinoid Screen, Urine Neg (NEGATIVE); Phencyclidine Screen, Urine Neg (NEGATIVE)
[2025-04-10 14:03] LABS: Opiate Scree,Urine Neg (NEGATIVE)
[2025-04-10] MEDS ORDERED: ACET-1882 PO ×2 (15:48)
[2025-04-10] MEDS ORDERED: CIPR500T4 PO ×2 (15:48)
[2025-04-10] MEDS ORDERED: DOCU-265 PO ×2 (15:48)
--- NOTE | 2025-04-10 16:17 | DVHDSRES ---
Discharge Summary Date of Admission Resident Creating Document: ASIA VARGAS RESIDENT April 09, 2025 at 22:51 Date of Discharge: April 10, 2025 Admitting Diagnosis left flank pain nephrolithiasis Labs/Diagnostic Data: PATIENT: AUBREY JAVIER ACCT: [id number] UNIT: [id number] : 2005 [facility]GE / SEX: 19 / F ADM STATUS: ADM IN SERVICE 0800 ORDERING PHYSICIAN: AKBAR DENNIS PROCEDURE(s): KIDUS - KIDNEY REASON: Flank pain, rule out hydronephrosis ORDER NUMBER(s): [id number], ACCESSION NUMBER(s): [id number] RENAL ULTRASOUND CLINICAL HISTORY: Flank pain, rule out hydronephrosis TECHNIQUE: Multiple grayscale ultrasound images were obtained through the kidneys and urinary bladder. COMPARISON: CT abdomen and pelvis from 04/09/2025 FINDINGS: Right kidney: Measures 10 cm. No hydronephrosis. Left kidney: Measures 9.5 cm. No hydronephrosis. Urinary bladder: Partially distended urinary bladder. Left ureteral jet not visualized. IMPRESSION: 1. Normal size kidneys without evidence of hydronephrosis. 2. Left ureteral jet not visualized. ATED BY: JOSH GODOY MD DICTATED DATE/TIME: 04/10/25 0046 Laboratory Results Test 04/10/25 12:30 04/10/25 10:20 04/09/25 23:06 Urine Color Light-yellow (Yellow) Urine Clarity Clear (Clear) Urine pH 6.0 (5.0-9.0) Urine Specific Matthews 1.029 (1.001-1.035) Urine Protein Negative (Negative) Urine Ketones 3+ (Negative) Urine Blood Trace /uL (Negative) Urine Nitrite Negative (Negative) Urine Bilirubin Negative (Negative) Urine Urobilinogen Normal mg/dL (Negative) Urine Leukocyte Esterase Negative /uL (Negative) Urine RBC 3 /hpf (0 - 4) Urine Microscopic WBC 2 /HPF (0-5) Urine Squamous Epithelial Cells Few /hpf (<5) Urine Bacteria None seen /hpf (None Seen) Urine Mucus Few (None Seen) Urine Glucose Normal mg/dL (Normal) Urine Opiates Screen Neg (NEGATIVE) Urine Fentanyl Screen Neg (NEGATIVE) Urine Barbiturates Screen Neg (NEGATIVE) Urine Phencyclidine Screen Neg (NEGATIVE) Urine Amphetamines Screen Neg (NEGATIVE) Urine Benzodiazepines Screen Neg (NEGATIVE) Urine Cocaine Screen Neg (NEGATIVE) Urine Cannabinoids Screen Neg (NEGATIVE) White Blood Count 4.0 10^3/uL (4.4-10.8) Red Blood Count 3.39 10^6/uL (4.0-5.20) Hemoglobin 10.2 g/dL (12.2-16.2) Hematocrit 31.0 % (36.0-46.0) Mean Corpuscular Volume 91.5 fL (80.0-100.0) Mean Corpuscular Hemoglobin 30.1 pg (28.0-32.0) Mean Corpuscular Hemoglobin Concent 32.9 g/dL (32.0-36.0) Red Cell Distribution Width 14.3 % (11.8-14.3) Platelet Count 200 10^3/uL (140-450) Mean Platelet Volume 8.5 fL (6.9-10.8) Neutrophils (%) (Auto) 43.0 % (37.0-80.0) Lymphocytes (%) (Auto) 42.6 % (10.0-50.0) Monocytes (%) (Auto) 8.2 % (0.0-12.0) Eosinophils (%) (Auto) 5.0 % (0.0-7.0) Basophils (%) (Auto) 1.2 % (0.0-2.0) Neutrophils # (Auto) 1.7 10 ^3/uL (1.6-8.6) Lymphocytes # (Auto) 1.7 10 ^3/uL (0.4-5.4) Monocytes # (Auto) 0.3 10 ^3/uL (0-1.3) Eosinophils # (Auto) 0.2 10 ^3/uL (0-0.8) Basophils # (Auto) 0 10 ^3/uL (0-0.2) Nucleated Red Blood Cells 0.0 % Sodium Level 142 mmol/L (136-145) Potassium Level 3.7 mmol/L (3.5-5.1) Chloride Level 110 mmol/L (98-107) Carbon Dioxide Level 22 mmol/L (20-31) Anion Gap 10 (5-15) Blood Urea Nitrogen 8 mg/dL (9-23) Creatinine 0.54 mg/dL (0.550-1.02) Glomerular Filtration Rate Calc 135 mL/min (>90) BUN/Creatinine Ratio 14.8 (10.0-20.0) Serum Glucose 79 mg/dL (74-106) Calcium Level 8.9 mg/dL (8.7-10.4) Total Bilirubin 0.5 mg/dL (0.2-1.0) Aspartate Amino Transferase (AST) 15 U/L (13-40) Alanine Aminotransferase (ALT) 15 U/L (7-40) Alkaline Phosphatase 44 U/L (46-116) Total Protein 6.4 g/dL (5.7-8.2) Albumin 4.2 g/dL (3.2-4.8) Lipase 29 U/L (12-53) Other Laboratory Tests 04/10/25 10:20 04/09/25 23:06 Brief Hx & Hospital Course: History of Present Illness Patient is 19 years old female with no significant past medical history came with a complaint of abdominal pain. As per patient she has been having abdominal pain that started on 1:00 a.m. in the morning, sudden onset, sharp, radiating to the back to the left flank, initially it was intermittent then it became persistent, maximum pain severity was 8/10. As per patient she came around 2:00 a.m. in the morning with the pain in the abdomen before she had a CT scan she had uterine strain and soy stone passing. After CT scan she was discharged home with the pain medication. But as the pain was ongoing she came back for further evaluation and care. Patient also endorsed nausea and vomiting several times, watery, no blood. Patient also reported having constipation for a while. No fever or dysuria or chest pain no shortness a breath or leg swelling or joint redness or tenderness. CT scan of the abdomen -Punctate 0.1 cm nonobstructing stone in the left upper pole kidney. Mild left hydroureteronephrosis without appreciable obstructing stone or mass. Findings may represent changes related to recently passed renal stone. Clinical correlation advised.Moderate volume colonic stool. Past Medical History; None Past surgical history: None Family History: hypertension Past Social History: Lives with mom, denies smoking/drug abuse, occasional alcoholic beverage seldom Brief Hospital course Patient is a 19-year-old female with no known past medical history was seen yesterday Thursday (04/09/2025) with left flank pain with radiation to the groin and lower abdomen. Per patient, while she was waiting to be seen she actually did pass a stone. CT abdomen ( 04/09/2025) showed Punctate 0.1 cm nonobstructing stone in the left upper pole kidney. Mild left hydroureteronephrosis without appreciable obstructing stone or mass. Findings may represent changes related to recently passed renal stone. Clinical correlation advised.Moderate volume colonic stool. Patient was later discharge yesterday, but she return later in morning due to persistent left flank pain. Repeat UA was unremarkable, renal US showed normal size kidneys without evidence of hydronephrosis. Left ureteral jet not visualized. Patient said she is feeling a little better than yesterday. Review of system Constitutional: Denies fever no chills no feeling of malaise HEENT: Denies headache, ear pain, ear discharges, conjunctivitis, nasal discharge throat pain Cardiovascular: Denies chest pain, palpitation, orthopnea, PND, or pedal edema Respiratory: Denies shortness of breath, cough cough, sputum production, hemoptysis, GI: Denies abdominal pain, nausea, vomiting, diarrhea, hematemesis, hematochezia, : Denies frequency, urgency, hematuria, left flank pain, lower abodominal pain Endocrine: Denies unintentional weight gain or weight loss, feeling of hot flashes, Souleymane: Denies easy bruising, bleeding disorders, epistaxis Musculoskeletal: Denies joint pains, muscle aches Psych: No evidence of depression, debi, suicidal ideation Examination General Appearance: Alert, Oriented X3, Cooperative, No acute distress HEENT: Atraumatic, PERRLA, EOMI, Mucous membrane moist/pink Respiratory: Clear to auscultation, Normal air movement Cardiovascular: Regular rate, Normal S1, Normal S2, No murmurs, no chest wall tenderness Abdominal: NO distention, mild left tenderness, bowel sounds present, no scars noted Extremities: No clubbing, No cyanosis, No edema, Normal pulses, No tenderness/swelling Skin: No rashes, No breakdown, No significant lesion Neuro: Normal gait, Normal speech, Strength at 5/5 X4 ext, Normal tone, Sensation intact, Cranial nerves 3-12 NL, Reflexes 2+ Psych/Mental Status: Mental status NL, Mood NL Diagnoses Acute pyelonephritiis Mild left-sided hydronephrosis resolved Neprolithiasis: CT: Punctate 0.1 cm nonobstructing stone in the left upper pole kidney Intractable abdomen and left flank pain likely due to acute renal stone Intractable nausea and vomiting likely due to pyelonephritis Constipation Normocytic normochromic Anemia Mild leukopenia Discharge plan Tyelenol prn Ciprofloxacin 500 mg bid 3 days Follow up at the discharges clinic in a week Follow up with your PCP Discharge plan discussed with Dr. Rowe Condition at Discharge: Good Final Diagnosis/Problems List Acute pyelonephritiis Mild left-sided hydronephrosis resolved Neprolithiasis; CT: Punctate 0.1 cm nonobstructing stone in the left upper pole kidney Intractable abdomen and left flank pain likely due to acute renal stone Intractable nausea and vomiting likely due to pyelonephritis Constipation Normocytic normochromic Anemia Mild leukopenia Discharge Disposition: Home Discharge Instruct/Medications Diet: See Comment Diet comment: Soft diet for about a week fiber rich diet Activity: Light activity Follow Up/Referral: 7 days at the discharge clinic Medications: Ciprofloxacin Discharge Statement: "Patient was advised to return to the ER or call 911 if any headaches, dizziness, shortness of breath, chest pain, abdominal pain, bleeding, fevers, or worsening of medical condition. Patient was counseled about treatment plan, medications, possible side effects, patientverbalized understanding. All questions were answered to the best of my ability. This discharge took greater then 30 minutes in planning, reviewing documentation, counseling the patient, and discussing with other team members." ASSESSMENT ASSESSMENT Assessment Possible acute pyelonephritiis Mild left-sided hydronephrosis resolved Neprolithiasis; CT: Punctate 0.1 cm nonobstructing stone in the left upper pole kidney Intractable abdomen and left flank pain likely due to acute renal stone Intractable nausea and vomiting likely due to pyelonephritis Constipation Normocytic normochromic Anemia Mild leukopenia ASIA VARGAS RESIDENT April 10, 2025 16:17
[2025-04-10] MEDS: NALOXONE HCL 1MG/ML 2ML SYRINGE ONE (21:44)
== END 2025-04-10 16:56 | disposition home or self-care (01) | DRG 690 ==
LOC: ER 12:50 → OVERFLOW 22:51 → WEST WING 04-10 02:27
PROVIDERS: ADMIT Internal Medicine; ATTEND Emergency Medicine
DX: N13.6 Pyonephrosis (principal); K59.00 Constipation, unspecified; D64.9 Anemia, unspecified; D72.819 Decreased white blood cell count, unspecified; Z87.442 Personal history of urinary calculi; Z79.2 Long term (current) use of antibiotics; Z79.1 Long term (current) use of non-steroidal anti-inflammatories (NSAID); Z79.899 Other long term (current) drug therapy; Z82.49 Family history of ischemic heart disease and other diseases of the circulatory system
CPT/HCPCS: 36415; 76775; 80053; 80307; 81001; 83690; 85025; 87086; 96361; 96374; G0378; J1885; J2405; J2470